=== PATIENT | female | born 1960 | race Caucasian/White ===

== ENCOUNTER 2018-09-28 18:26 | Emergency (ER) | payer OTHER, MEDICARE ==
[2018-09-28] MEDS ORDERED: ACET-704 PO (18:59)
[2018-09-28] MEDS ORDERED: PENI500T PO (18:59)
--- NOTE | 2018-09-28 19:04 | PHYS DOC ---
Adult General Chief Complaint Chief Complaint dental pain HPI HPI Procedures old female presented to the ER with the dental pain on the left lower side for the past month she is scheduled to see a dentist next week no fever no chills no chest pain no shortness of breath Review of Systems Review of Systems Constitutional: Denies fever or chills [] Eyes: Denies change in visual acuity, redness, or eye pain [] HENT: Denies nasal congestion or sore throat [] Respiratory: Denies cough or shortness of breath [] Cardiovascular: No additional information not addressed in HPI [] GI: Denies abdominal pain, nausea, vomiting, bloody stools or diarrhea [] : Denies dysuria or hematuria [] Musculoskeletal: Denies back pain or joint pain [] Integument: Denies rash or skin lesions [] Neurologic: Denies headache, focal weakness or sensory changes [] Endocrine: Denies polyuria or polydipsia [] All other systems were reviewed and found to be within normal limits, except as documented in this note. Allergies Allergies Allergies Coded Allergies Type Severity Reaction Last Updated Verified erythromycin base Allergy Unknown 09/28/18 Yes Physical Exam Physical Exam Constitutional: Well developed, well nourished, no acute distress, non-toxic appearance. [] HENT: Normocephalic, atraumatic, bilateral external ears normal, oropharynx moist, no oral exudates, nose normal. [] Eyes: PERRLA, EOMI, conjunctiva normal, no discharge. [] Neck: Normal range of motion, no tenderness, supple, no stridor. [] Cardiovascular:Heart rate regular rhythm, no murmur [] Lungs & Thorax: Bilateral breath sounds clear to auscultation [] Abdomen: Bowel sounds normal, soft, no tenderness, no masses, no pulsatile masses. [] Skin: Warm, dry, no erythema, no rash. [] Back: No tenderness, no CVA tenderness. [] Extremities: No tenderness, no cyanosis, no clubbing, ROM intact, no edema. [] Neurologic: Alert and oriented X 3, normal motor function, normal sensory function, no focal deficits noted. [] Psychologic: Affect normal, judgement normal, mood normal. [] Current Patient Data Vital Signs Vital Signs Date Time Temp Pulse Resp B/P (MAP) Pulse Ox O2 Delivery O2 Flow Rate FiO2 09/28/18 18:28 97.9 115 18 95 Room Air EKG EKG [] Radiology/Procedures Radiology/Procedures [] Course & Med Decision Making Course & Med Decision Making Pertinent Labs and Imaging studies reviewed. (See chart for details) [] Final Impression Final Impression [] Problems: (1) Chronic dental pain Dragon Disclaimer Dragon Disclaimer This electronic medical record was generated, in whole or in part, using a voice recognition dictation system. IRLANDA LI MD Sep 28, 2018 19:04
[2018-09-28 19:21] VITALS: BP 155/80
== END 2018-09-28 19:25 | disposition home or self-care (01) ==
LOC: ER 18:26
DX: G89.29 Other chronic pain (principal); K08.89 Other specified disorders of teeth and supporting structures; Z88.1 Allergy status to other antibiotic agents
CPT/HCPCS: 99283

== ENCOUNTER 2019-12-26 22:23 | Inpatient (IN) | payer MEDICARE, OTHER ==
[~2019-12-26] VITALS: Ht 160 cm; Wt 152.0 kg
[~2019-12-26 22:23] MED LIST: ACET-704 PO; PENI500T PO
--- NOTE | 2019-12-26 22:40 | RAD ---
EXAM: CT Head without IV contrast CLINICAL HISTORY: Left-sided facial droop COMPARISON: None. TECHNIQUE: Routine CT of the head without contrast. Soft tissues and bone windows were reviewed. PQRS compliance statement - One or more of the following individualized dose reduction techniques were utilized for this study: 1. Automated exposure control 2. Adjustment of the mA and/or kV according to patient size 3. Use of iterative reconstruction technique FINDINGS: There is no evidence of hemorrhage, mass or extra-axial fluid collection. Mccracken-white differentiation is maintained with no evidence of edema. There is no mass effect or shift of the intracranial structures. The ventricles, basilar cisterns and cortical sulci are normal in size and configuration for the patients stated age. The cerebellum and brainstem are unremarkable. The calvarium demonstrates no evidence of fracture or focal lesion. Mastoid air cells are clear. Opacification of the right maxillary sinus and right frontal sinus, likely sinusitis. The visualized portions of the orbits are normal. IMPRESSION: 1. No evidence for acute intracranial hemorrhage. 2. Opacification of the right maxillary sinus and right frontal sinus, likely sinusitis. Findings discussed with JOSE SU at 12/26/2019 10:36 PM. FOR INTERNAL CODING PURPOSES RESULT CODE: (C) Electronically signed by: Stephan Umana MD (12/26/2019 10:38 PM) [id number]
--- NOTE | 2019-12-26 22:48 | EKG ---
[address] [address] Test Date: 2019-12-26 Test Time: 22:40:35 Pat Name: LESLY BRYSON Department: Room: Gender: F Compound Finisher: : 1960 Requested By: JOSE SU Order Number: [id number] Reading MD: Measurements Intervals [place] Rate: 108 P: [place]: QRS: 65 QRSD: 98 T: 26 QT: 348 QTc: 470 Interpretive Statements IRREGULAR RHYTHM, NO P-WAVE FOUND R-S TRANSITION ZONE IN V LEADS DISPLACED TO THE LEFT OTHERWISE NORMAL ECG RI6.01 No previous ECG available for comparison
[2019-12-26] MEDS ORDERED: IV RINGERS SOLUTION,LACTATED 1,000 ML IV SCH (23:00)
--- NOTE | 2019-12-26 23:01 | RAD ---
Exam: Chest one view INDICATION: Stroke evaluation TECHNIQUE: Frontal view of the chest Comparisons: None FINDINGS: Heart is mildly enlarged. Pulmonary vessels are within normal limits. The lung and pleural spaces are clear. IMPRESSION: No acute cardiopulmonary process. Electronically signed by: Albin Shah MD (12/26/2019 10:58 PM) [facility]
[2019-12-26 23:02] LABS: BASO # 0.1 x10^3/uL (0.0-0.2); BASO % 1 % (0-3); EOS # 0.2 x10^3/uL (0.0-0.7); EOS % 2 % (0-3); HEMATOCRIT 38.2 % (36.0-47.0); HEMOGLOBIN 12.6 g/dL (12.0-15.5); LYMPH % 20 % (24-48); MEAN CORPUSCULAR HEMOGLOBIN 31 pg (25-35); MEAN CORPUSCULAR HGB CONC 33 g/dL (31-37); MEAN CORPUSCULAR VOLUME 93 fL (79-100); MONO # 0.6 x10^3/uL (0.0-1.1); MONO % 6 % (0-9); NEUT # 7.2 x10^3uL (1.8-7.7); NEUT % 72 % (31-73); PLATELET COUNT 262 x10^3/uL (140-400); RED BLOOD COUNT 4.13 x10^6/uL (3.50-5.40); RED CELL DISTRIBUTION WIDTH 14.2 % (11.5-14.5)
[2019-12-26 23:09] LABS: CALCIUM 8.5 mg/dL (8.5-10.1); GFR 56.7
[2019-12-26] MEDS: ENOXAPARIN ** NOTE DOSE ** SYRINGE SQ SCH (23:09)
--- NOTE | 2019-12-26 23:09 | PHYS DOC ---
Past History Past Medical History: A-Fib, Anxiety, Asthma, Bronchitis, TIA, Other Past Surgical History: Cholecystectomy, Alcohol Use: None Drug Use: None Adult General Chief Complaint Chief Complaint: ALTERED MENTAL STATUS..." I was coming out of the shower.. and it seems like my right arm was numb or may weak.. that was about 0930 pm.. but I got worried and decided to come in to get check ouit.. the arm stuff only lasted a few minutes.. I got to set up... I can not lay flat on my back.... I got chonic back pain.. .. I do have afib... that I get metoprolol for.. " HPI HPI Patient is a 59 year old female who presents with above hx and complaints of Rt. arm numbness and weakness of very short duration at 2100 hrs. Symptom resolved at scene. Was evaluated as CVA by paramedics. Pt. but no significant deficits on arrival, and main compliant was low back pain from laying on her back. Pt. does have a history of A. fib and has been taking minute metoprolol 25 a day for that disorder for some time. Patient is not on any anticoagulation. Patient does not smoke. Patient denies any trauma. Patient travel. Patient denies any history immunosuppression.. Patient did have trouble concentrating answer questions initially because of her back pain complaints. However this resolved promptly upon sitting patient up. Patient normally follows with Dr. Wellington. Discussed with pt. benefits and risks of TPA, if we elected to treat a acute stroke.. Pt. stated did not want to do that kind of treatment, because she felt fine now. Pt. does report she has had increased heart rate today. Patient normally follows with for Atrial Fib.and hypertension. Review of Systems Review of Systems Constitutional: Denies fever or chills [] Eyes: Denies change in visual acuity, redness, or eye pain [] HENT: Denies nasal congestion or sore throat [] Respiratory: Denies cough or shortness of breath [] Cardiovascular: No additional information not addressed in HPI [] GI: Denies abdominal pain, nausea, vomiting, bloody stools or diarrhea [] : Denies dysuria or hematuria [] Musculoskeletal: Denies back pain or joint pain [] Integument: Denies rash or skin lesions [] Neurologic: Denies headache, focal weakness or sensory changes []Pt. complaints of earlier right arm numbness and weakness-resolved with by time of material cutter transport Endocrine: Denies polyuria or polydipsia [] All other systems were reviewed and found to be within normal limits, except as documented in this note. Family History Family History Noncontributory presentation Current Medications Current Medications Current Medications Medications (Trade) Dose Ordered Sig/Caty Start Time Stop Time Status Last Admin Dose Admin Lactated Ringer's 1,000 ml @ 100 mls/hr Q10H 12/26/19 23:00 12/27/19 08:59 Allergies Allergies Allergies Coded Allergies Type Severity Reaction Last Updated Verified erythromycin base Allergy Unknown 09/28/18 Yes Physical Exam Physical Exam Constitutional: no acute distress, non-toxic appearance. [] HENT: Normocephalic, atraumatic, bilateral external ears normal, oropharynx moist, no oral exudates, nose normal. [] Eyes: PERRLA, EOMI, conjunctiva normal, no discharge. [] Neck: Normal range of motion, no tenderness, supple, no stridor. [] More than 17 inches circumference Cardiovascular: Tachycardia Heart rate and irregular regular rhythm, no murmur []. PMI slightly to left Lungs & Thorax: Bilateral breath sounds equal at apexes with basilar crackles on auscultation [] Abdomen: Bowel sounds normal, soft, no tenderness, no masses, no pulsatile masses. [] Morbid obesity. Old surgery scars. Skin: Warm, dry, no erythema, no rash. [] Back: No tenderness, no CVA tenderness. [] Extremities: No tenderness, no cyanosis, no clubbing, ROM intact, no edema. [] Complaints of chronic low back pain. Neurologic: Alert and oriented X 3, normal motor function, normal sensory function, no focal deficits noted. []DTRs +2 patella and brachial. Resort Host equal. Right-hand dominant. No drift. NIHSS - 1? Psychologic: Affect normal, judgement normal, mood normal. [] Current Patient Data Lab Results Laboratory Tests Test 12/26/19 22:38 Glucose (Fingerstick) 122 mg/dL (70-99) H EKG EKG My interpretation EKG shows a sinus tachycardia at 108 bpm. There is a regular rate and rhythm. There is no obvious conduction by P waves. Overall morphology consistent with A. fib.[] Radiology/Procedures Radiology/Procedures [address] [address] IMAGING REPORT Signed PATIENT: LESLY BRYSON ACCOUNT: [id number] : 1960 LOCATION: ER AGE: 59 SEX: F EXAM STATUS: REG ER ORD. PHYSICIAN: JOSE SU MD REASON: stroke eval, left sided facial droop, unable to speak PROCEDURE: CT CODE STROKE HEAD WO EXAM: CT Head without IV contrast CLINICAL HISTORY: Left-sided facial droop COMPARISON: None. TECHNIQUE: Routine CT of the head without contrast. Soft tissues and bone windows were reviewed. PQRS compliance statement - One or more of the following individualized dose reduction techniques were utilized for this study: 1. Automated exposure control 2. Adjustment of the mA and/or kV according to patient size 3. Use of iterative reconstruction technique FINDINGS: There is no evidence of hemorrhage, mass or extra-axial fluid collection. Mccracken-white differentiation is maintained with no evidence of edema. There is no mass effect or shift of the intracranial structures. The ventricles, basilar cisterns and cortical sulci are normal in size and configuration for the patients stated age. The cerebellum and brainstem are unremarkable. The calvarium demonstrates no evidence of fracture or focal lesion. Mastoid air cells are clear. Opacification of the right maxillary sinus and right frontal sinus, likely sinusitis. The visualized portions of the orbits are normal. IMPRESSION: 1. No evidence for acute intracranial hemorrhage. 2. Opacification of the right maxillary sinus and right frontal sinus, likely sinusitis. Findings discussed with JOSE SU at 12/26/2019 10:36 PM. FOR INTERNAL CODING PURPOSES RESULT CODE: (C) [][address] [address] IMAGING REPORT Signed PATIENT: LESLY BRYSON ACCOUNT: [id number] : 1960 LOCATION: ER AGE: 59 SEX: F EXAM STATUS: REG ER ORD. PHYSICIAN: JOSE SU MD REASON: stroke eval PROCEDURE: PORTABLE CHEST 1V Exam: Chest one view INDICATION: Stroke evaluation TECHNIQUE: Frontal view of the chest Comparisons: None FINDINGS: Heart is mildly enlarged. Pulmonary vessels are within normal limits. The lung and pleural spaces are clear. IMPRESSION: No acute cardiopulmonary process. Electronically signed by: Albin Candelaria MD (12/26/2019 10:58 PM) [facility] DICTATED AND SIGNED BY: ALBIN CANDELARIA MD DATE: 12/26/192257 CC: JOSE SU MD; MATTHEW WELLINGTON ~ Course & Med Decision Making Course & Med Decision Making Pertinent Labs and Imaging studies reviewed. (See chart for details) Pt. admitted to Dr. Dwyer, with neurology and cardiology consults. Will anticoagulate with Lovenox and give aspirin. Heart score 4 Impression: 1. TIA vs CVA- ( Not candidate for TPA at this time. And patient refused considering use of this medication) 2. A. fib with rapid ventricular response 3. Right mastoid and right frontal sinusitis 4. Morbid obesity 5. CHF diastolic dysfunction BNP 3168 6. Diabetes 122 7. Elevated d-dimer 1.40 8. Urinary tract infection 9. Accelerated hypertension 10. Elevated CRP 21.5 and Sed. Rate 53 11. History of asthma 12. Malnutrition albumin 3.0 [] Dragon Disclaimer Dragon Disclaimer This electronic medical record was generated, in whole or in part, using a voice recognition dictation system. Departure Departure: Disposition: 01 HOME/RESIDENCE PRIOR TO ADM Condition: STABLE Referrals: MATTHEW WELLINGTON (PCP) Dragon Disclaimer This chart was dictated in whole or in part using Voice Recognition software in a busy, high-work load, and often noisy Emergency Department environment. It may contain unintended and wholly unrecognized errors or omissions. Dragon Disclaimer This chart was dictated in whole or in part using Voice Recognition software in a busy, high-work load, and often noisy Emergency Department environment. It may contain unintended and wholly unrecognized errors or omissions. JOSE SU MD Dec 26, 2019 23:09
[2019-12-26] MEDS ORDERED: ANTI-COAG MONITOR BY PHARMACY. MC PRN (23:15)
[2019-12-26 23:21] LABS: C REACTIVE PROTEIN 21.5 mg/L (0-3.3); DIRECT BILIRUBIN 0.1 mg/dL (0.0-0.2); MAGNESIUM 1.9 mg/dL (1.8-2.4); TOTAL BILIRUBIN 0.4 mg/dL (0.2-1.0); TOTAL PROTEIN 7.6 g/dL (6.4-8.2)
[2019-12-26] MEDS ORDERED: ASPIRIN 81 MG TAB.CHEW PO ONE (23:30)
[2019-12-26 23:40] LABS: BARBITURATES NEG (NEG); BENZODIAZEPINES NEG (NEG); CANNABINOIDS NEG (NEG); COCAINE NEG (NEG); METHADONE NEG (NEG); OPIATES NEG (NEG); PHENCYCLIDINE NEG (NEG)
[2019-12-26] MEDS ORDERED: IV NORMAL SALINE 50ML 50 ML ONE (23:44)
[2019-12-26] MEDS ORDERED: cefTRIAXone SODIUM 1 GM VIAL ONE (23:44)
[2019-12-26 23:47] LABS: AMPHETAMINE/METHAMPHETAMINE NEG (NEG)
[2019-12-26 23:54] LABS: BACTERIA,URINE FEW /HPF (0-FEW); BILIRUBIN,URINE NEG (NEG); CLARITY,URINE HAZY; COLOR,URINE YELLOW; GLUCOSE,URINE NEG (NEG); NITRITE,URINE POS (NEG); RBC,URINE OCC /HPF (0-2); SQUAMOUS EPITHELIAL CELL,UR MOD /LPF; UROBILINOGEN,URINE 0.2 mg/dL (0.2 mg/dL); WBC,URINE >40 /HPF (0-4)
[2019-12-27 00:27] LABS: SEDIMENTATION RATE 53 (0-25)
[2019-12-27] MEDS ORDERED: CONTRAST GIVEN MC PRN (00:30)
[2019-12-27] MEDS ORDERED: METOPROLOL TARTRATE 5 MG/5 ML VIAL. IV ONE (00:30)
[2019-12-27] MEDS ORDERED: ACETAMINOPHEN 325 MG TABLET PO PRN (00:30)
[2019-12-27] MEDS ORDERED: IOHEXOL 350 MG/ML 100 ML VIAL. IV ONE (00:30)
[2019-12-27] MEDS ORDERED: ONDANSETRON PF 4 MG/2 ML VIAL. IV PRN (00:30)
--- NOTE | 2019-12-27 01:07 | RAD ---
CTA Chest with contrast: Clinical History: Dizziness tachycardia chest pain and elevated d-dimer. Axial helical images of the chest were obtained after the administration of 100 cc of IV Isovue-370 and timed appropriately for a pulmonary arterial study. Conventional axial reconstruction was performed in addition to coronal, sagittal and bilateral oblique MIP (maximum intensity projection). This study was ordered to detect possible pulmonary embolism. There are no filling defects to suggest pulmonary embolism. The lungs and pleural margins are clear. There is no mediastinal or hilar lymphadenopathy. The thoracic aorta appears normal. Impression: 1. No evidence of pulmonary embolism. 2. No significant findings. PQRS Compliance Statement: One or more of the following individualized dose reduction techniques were utilized for this examination: 1. Automated exposure control 2. Adjustment of the mA and/or kV according to patient size 3. Use of iterative reconstruction technique Electronically signed by: Jeff Hand III, MD (12/27/2019 1:04 AM) [id number]
[2019-12-27] MEDS ORDERED: FUROSEMIDE 40 MG/4 ML VIAL IVP ONE (03:00)
[2019-12-27] MEDS ORDERED: METO-239 PO (04:30)
[2019-12-27] MEDS ORDERED: SERT100T8 PO (04:30)
[2019-12-27] MEDS: METOPROLOL TART IMMED RELEASE 25 MG TABLET PO SCH ×2 (05:40→09:15)
[2019-12-27 06:21] VITALS: BP 154/112
[2019-12-27] MEDS ORDERED: ENOXAPARIN ** NOTE DOSE ** SYRINGE SQ SCH (09:00)
--- NOTE | 2019-12-27 09:07 | RAD ---
VENOUS LOWER EXT BILATERAL History: Lower extremity edema. Elevated d-dimer. Comparison: None. Discussion: Degraded evaluation due to patient body habitus. Multiple longitudinal and transverse high resolution real-time images of the venous system of bilateral lower extremity were obtained with color and Doppler sampling. The common femoral, superficial femoral, popliteal and proximal calf veins are all patent and demonstrate normal flow and compressibility. Normal respiratory phasicity and augmentation is present. Impression: 1. No evidence of deep vein thrombosis. Electronically signed by: Hayes Lepe DO (12/27/2019 9:04 AM) [id number]
[2019-12-27] MEDS: ENOXAPARIN ** NOTE DOSE ** SYRINGE SQ SCH (09:15)
[2019-12-27] MEDS: FLUTICASONE 50MCG/NASAL SPRAY 16GM BOTTLE. NS SCH (09:16)
--- NOTE | 2019-12-27 09:16 | PDOC2 ---
HERACLIO CARRENO SAFETY INSTRUCTOR 12/27/19 0916: CARDIAC CONSULT DATE OF CONSULT Date Of Consult DATE: 12/27/19 TIME: 09:10 REASON FOR CONSULT Reason for Consult CHF AFIB HTN REFERRING PHYSICIAN Referring Physician Dr. Malone SOURCE Source: Chart review, Patient HPI History of Present Illness This is a 59 yo female who presented secondary to right sided numbness and weakness. Reports she got out of the shower last night and began walking to one side. Noticed her right arm and leg were heavy and weak. Had difficulty making speech. Symptoms initially resolved, but then retuned so she came to the ED for further evaluation and treatments. Fells back to baseline this morning. No dizziness, diaphoresis, palpitations, shortness of breath, or nausea/vomiting. Has a history of AFIB. Reports this was diagnosed 4-5 years ago. Was supposed to see a line supervisor, but never went. Does not take OAC or ASA routinely. Rate has been controlled on metoprolol. No previous cardiac workup. PAST MEDICAL HISTORY Cardiovascular: AFIB, HTN Pulmonary: Asthma Psych: Anxiety, Depression PAST SURGICAL HISTORY Past Surgical History: Hysterectomy FAMILY HISTORY Family History: Stroke SOCIAL HISTORY Smoke: No ALCOHOL: none Drugs: None Lives: with Family CURRENT MEDICATIONS Current Medications Current Medications Lactated Ringer's 1,000 ml @ 100 mls/hr Q10H IV Last administered on 12/26/19at 23:04; Start 12/26/19 at 23:00; Stop 12/27/19 at 05:07; Status DC Aspirin (Children'S Aspirin) 324 mg 1X ONCE PO Last administered on 12/26/19at 23:09; Start 12/26/19 at 23:30; Stop 12/26/19 at 23:31; Status DC Enoxaparin Sodium (Lovenox 150mg Syringe) 150 mg Q12HR SQ Last administered on 12/26/19at 23:09; Start 12/26/19 at 23:30 Info (Anti-Coagulation Monitoring By Pharmacy) 1 each PRN DAILY PRN MC SEE COMMENTS; Start 12/26/19 at 23:15 Ceftriaxone Sodium 1 gm/ Sodium Chloride 50 ml @ 100 mls/hr 1X ONCE IV Last administered on 12/26/19at 23:46; Start 12/26/19 at 23:30; Stop 12/26/19 at 23:59; Status DC Sodium Chloride 50 ml @ As Directed STK-MED ONCE .ROUTE ; Start 12/26/19 at 23:44; Stop 12/26/19 at 23:45; Status DC Ceftriaxone Sodium (Rocephin) 1 gm STK-MED ONCE .ROUTE ; Start 12/26/19 at 23:44; Stop 12/26/19 at 23:45; Status DC Metoprolol Tartrate (Lopressor Vial) 5 mg 1X ONCE IV Last administered on 12/27/19at 00:56; Start 12/27/19 at 00:30; Stop 12/27/19 at 00:31; Status DC Iohexol (Omnipaque 350 Mg/ml) 100 ml 1X ONCE IV Last administered on 12/27/19at 00:42; Start 12/27/19 at 00:30; Stop 12/27/19 at 00:31; Status DC Info (Do NOT chart on this entry -- for MONITORING) 1 each PRN DAILY PRN MC SEE COMMENTS; Start 12/27/19 at 00:30; Stop 12/29/19 at 00:29 Ondansetron HCl (Zofran) 4 mg PRN Q4HRS PRN IV NAUSEA/VOMITING; Start 12/27/19 at 00:30; Stop 12/28/19 at 00:29 Acetaminophen (Tylenol) 650 mg PRN Q4HRS PRN PO FEVER; Start 12/27/19 at 00:30; Stop 12/28/19 at 00:29 Enoxaparin Sodium (Lovenox 150mg Syringe) 150 mg Q12HR SQ ; Start 12/27/19 at 09:00; Status UNV Fluticasone Propionate (Flonase) 2 spray DAILY NS ; Start 12/27/19 at 09:00 Ceftriaxone Sodium 1 gm/ Sodium Chloride 50 ml @ 100 mls/hr QHS IV ; Start 12/27/19 at 21:00 Metoprolol Tartrate (Lopressor) 25 mg BID PO Last administered on 12/27/19at 05:40; Start 12/27/19 at 06:00 Furosemide (Lasix) 40 mg 1X ONCE IVP Last administered on 12/27/19at 02:36; Start 12/27/19 at 03:00; Stop 12/27/19 at 03:01; Status DC Lactobacillus Rhamnosus (Culturelle) 1 cap BID PO ; Start 12/27/19 at 21:00 Active Scripts Active Reported Sertraline Hcl 100 Mg Tablet 100 Mg PO DAILY Metoprolol Succinate ( Xl ) (Metoprolol Succinate) 25 Mg Tab.er.24h 25 Mg PO DAILY ALLERGIES Allergies: Coded Allergies: erythromycin base (Verified Allergy, Unknown, 09/28/18) ROS Review of Systems 14 point ROS conducted with pertinent positives noted above in hPI PHYSICAL EXAM General: Alert, Oriented X3, Cooperative, No acute distress HEENT: Atraumatic, Mucous membr. moist/pink Lungs: Other (diminished bases ) Heart: Other Abdomen: Soft, No tenderness, Other (obese ) Extremities: No edema, Normal pulses Skin: No breakdown Neuro: Normal speech, Sensation intact Psych/Mental Status: Mental status NL, Mood NL MUSCULOSKELETAL: No joint tenderness, Osteoarthritic changes both hands VITALS Vital Signs Vital Signs Date Time Temp Pulse Resp B/P (MAP) Pulse Ox O2 Delivery O2 Flow Rate FiO2 12/27/19 06:21 97.9 96 16 154/112 (126) 95 Room Air LABS LABS Laboratory Tests Test 12/26/19 22:35 12/26/19 22:38 12/26/19 23:00 White Blood Count 10.0 x10^3/uL (4.0-11.0) Red Blood Count 4.13 x10^6/uL (3.50-5.40) Hemoglobin 12.6 g/dL (12.0-15.5) Hematocrit 38.2 % (36.0-47.0) Mean Corpuscular Volume 93 fL (79-100) Mean Corpuscular Hemoglobin 31 pg (25-35) Mean Corpuscular Hemoglobin Concent 33 g/dL (31-37) Red Cell Distribution Width 14.2 % (11.5-14.5) Platelet Count 262 x10^3/uL (140-400) Neutrophils (%) (Auto) 72 % (31-73) Lymphocytes (%) (Auto) 20 % (24-48) Monocytes (%) (Auto) 6 % (0-9) Eosinophils (%) (Auto) 2 % (0-3) Basophils (%) (Auto) 1 % (0-3) Neutrophils # (Auto) 7.2 x10^3uL (1.8-7.7) Lymphocytes # (Auto) 2.0 x10^3/uL (1.0-4.8) Monocytes # (Auto) 0.6 x10^3/uL (0.0-1.1) Eosinophils # (Auto) 0.2 x10^3/uL (0.0-0.7) Basophils # (Auto) 0.1 x10^3/uL (0.0-0.2) Erythrocyte Sedimentation Rate 53 (0-25) Prothrombin Time 10.3 SEC (9.4-11.4) Prothromb Time International Ratio 1.0 (0.9-1.1) Activated Partial Thromboplast Time 25 SEC (23-33) D-Dimer (Alexa) 1.40 mg/L (0.00-0.50) Sodium Level 139 mmol/L (136-145) Potassium Level 4.0 mmol/L (3.5-5.1) Chloride Level 102 mmol/L (98-107) Carbon Dioxide Level 26 mmol/L (21-32) Anion Gap 11 (6-14) Blood Urea Nitrogen 17 mg/dL (7-20) Creatinine 1.0 mg/dL (0.6-1.0) Estimated GFR (Cockcroft-Gault) 56.7 Glucose Level 122 mg/dL (70-99) Calcium Level 8.5 mg/dL (8.5-10.1) Magnesium Level 1.9 mg/dL (1.8-2.4) Total Bilirubin 0.4 mg/dL (0.2-1.0) Direct Bilirubin 0.1 mg/dL (0.0-0.2) Aspartate Amino Transf (AST/SGOT) 14 U/L (15-37) Alanine Aminotransferase (ALT/SGPT) 19 U/L (14-59) Alkaline Phosphatase 121 U/L (46-116) Creatine Kinase 44 U/L (26-192) Troponin I Quantitative 0.026 ng/mL (0-0.055) C-Reactive Protein 21.5 mg/L (0-3.3) AQ-Dxd-D-Type Natriuretic Peptide 3168 pg/mL (0-124) Total Protein 7.6 g/dL (6.4-8.2) Albumin 3.0 g/dL (3.4-5.0) Lipase 94 U/L (73-393) Glucose (Fingerstick) 122 mg/dL (70-99) Urine Collection Type Unknown Urine Color Yellow Urine Clarity Hazy Urine pH 5.5 Urine Specific [place] >=1.030 Urine Protein 30 mg/dl (NEG-TRACE) Urine Glucose (UA) Neg mg/dL (NEG) Urine Ketones (Stick) Neg mg/dL (NEG) Urine Blood Mod (NEG) Urine Nitrite Pos (NEG) Urine Bilirubin Neg (NEG) Urine Urobilinogen Dipstick 0.2 mg/dL (0.2 mg/dL) Urine Leukocyte Esterase Trace (NEG) Urine RBC Occ /HPF (0-2) Urine WBC >40 /HPF (0-4) Urine Squamous Epithelial Cells Mod /LPF Urine Bacteria Few /HPF (0-FEW) Urine Opiates Screen Neg (NEG) Urine Methadone Screen Neg (NEG) Urine Barbiturates Neg (NEG) Urine Phencyclidine Screen Neg (NEG) Urine Amphetamine/Methamphetamine Neg (NEG) Urine Benzodiazepines Screen Neg (NEG) Urine Cocaine Screen Neg (NEG) Urine Cannabinoids Screen Neg (NEG) Urine Ethyl Alcohol Neg (NEG) ASSESSMENT/PLAN Assessment/Plan 1. Transient right- sided weakness/numbness with associated dysarthria; resolved 2. Persistent AFIB; rate elevated upon arrival, but is now controlled. Diagnosed 4-5 years ago. Was to have cardiac workup, but never went to see line supervisor. Not on OAC or ASA at home 3. Accelerate HTN; better controlled 4. Mild acute on chronic diastolic CHF 5. Morbid obestiy 6. Elevated d-dimer; CTA negative for PE 7. UTI Recommendations Start OAC with Eliquis. R/b/a discussed and she is agreeable Increase metoprolol for better rate control TSH, lipids Echo to assess LV systolic function Lasix PRN Consider outpatient ischemic evaluation, monitor Supportive care ABRAHAN GRAVES MD 12/28/19 1031: CARDIAC CONSULT ASSESSMENT/PLAN Assessment/Plan Late entry for 12/27/2019 Pt. seen and examined. Agree with above NURSING INFORMATICS SPECIALIST note. She has cardiomyopathy, likely NICM due to afib and obesity. Will plan for outpt cath and initiate HF medical therapy first. Agree with anticoagulation, discussed r/b/a with patient and family. HERACLIO CARRENO APRN Dec 27, 2019 09:16 ABRAHAN GRAVES MD Dec 28, 2019 10:31
--- NOTE | 2019-12-27 09:18 | RAD ---
DOPPLER CAROTID BILAT History: TIA. CVA. COMPARISON: None Technique: Duplex sonography of the cervical portion of both carotid arteries was performed. Real-time grayscale, color flow Doppler, and Doppler spectral waveform analysis is performed. PQRS Compliance Statement - Stenosis calculations for CT, MR and conventional angiography are based upon measurement of the distal ICA diameter in accordance with the NASCET methodology. Stenosis calculations for carotid ultrasound studies are derived from validated velocity criteria which are known to correlate with the NASCET methodology. Findings: Right side: Peak systolic flow velocity of the CCA is 84 cm/sec. Peak systolic flow velocity of the ICA is 43 cm/sec. The ICA/CCA ratio is 0.51. Peak end diastolic flow velocity of the ICA is 18 cm/sec. The peak systolic velocity of the ECA is 95 cm/sec. No significant plaque formation is identified, Left side: Peak systolic flow velocity of the CCA is 76 cm/sec. Peak systolic flow velocity of the ICA is 60 cm/sec. The ICA/CCA ratio is 0.79. Peak end diastolic flow velocity of the ICA is 26 cm/sec. Peak systolic flow velocity of the ECA is 108 cm/sec. No significant plaque formation is identified. Vertebral arteries: Bilateral vertebral arteries demonstrate antegrade flow. IMPRESSION: 1. No hemodynamically significant internal carotid artery stenosis. Electronically signed by: Hayes Lepe DO (12/27/2019 9:15 AM) [email or web address]
[2019-12-27] MEDS ORDERED: METOPROLOL TART IMMED RELEASE 25 MG TABLET PO ONE (10:15)
[2019-12-27 10:37] VITALS: BP 121/87
[2019-12-27 15:54] VITALS: BP 159/95
[2019-12-27] MEDS ORDERED: FUROSEMIDE 20 MG/2 ML VIAL IVP ONE (18:30)
--- NOTE | 2019-12-27 18:38 | CARD ---
MR#: [id number] Date of Study: 12/27/2019 Ordering Physician: HERACLIO CARRENO, Referring Physician: HERACLIO CARRENO, Tech: Jagruti Talbot APPROVED REPORT EXAM: Two-dimensional and M-mode echocardiogram with Doppler and color Doppler. Other Information Quality : AverageHR: 80bpm Technically limited study due to body habitus. INDICATION Atrial Fibrillation 2D DIMENSIONS RVDd3.3 (2.9-3.5cm)Left Atrium(2D)3.8 (1.6-4.0cm) IVSd0.9 (0.7-1.1cm)Aortic Root(2D)2.6 (2.0-3.7cm) LVDd5.8 (3.9-5.9cm)LVOT Diameter1.9 (1.8-2.4cm) PWd1.0 (0.7-1.1cm)LVDs4.7 (2.5-4.0cm) FS (%) 19.8 %SV66.7 ml LVEF(%)39.9 (>50%) Aortic Valve AoV Peak Duy.129.3cm/sAoV VTI28.5cm AO Peak GR.6.7mmHgLVOT Peak Duy.97.7cm/s LVOT VTI 18.85cmAO Mean GR.4mmHg JABIER (VMAX)2.96gr0AKP (VTI)1.91cm2 Mitral Valve MV E Peak Gr.7mmHgMV E Mean Gr.2mmHg Pulmonary Valve PV Peak Dytvnwux63.0cm/sPV Peak Grad.2mmHg Tricuspid Valve TR P. Lytuvhdj668vk/sRAP [id number] TR Peak Gr.54buBaOJCV03seXv LEFT VENTRICLE The Left Ventricle is mildly dilated. There is normal left ventricular wall thickness. The systolic f unction is moderately impaired. The Ejection Fraction is 40%. There is global hypokinesis of the left ventricle. Septal motion suggestive of conduction defect. Tissue Doppler imaging reveals moderate le ft ventricular diastolic dysfunction. RIGHT VENTRICLE The right ventricle is normal size. There is normal right ventricular wall thickness. The right ventr icular systolic function is normal. ATRIA The left atrium is borderline dilated. The right atrium is borderline dilated. The interatrial septum is intact with no evidence for an atrial septal defect or patent foramen ovale as noted on 2-D or Do ppler imaging. AORTIC VALVE The aortic valve is not well visualized. Doppler and Color Flow revealed no significant aortic regurg itation. There is no significant aortic valvular stenosis. MITRAL VALVE The mitral valve is normal in structure and function. There is no evidence of mitral valve prolapse. There is no mitral valve stenosis. Doppler and Color-flow revealed trace mitral regurgitation. TRICUSPID VALVE The tricuspid valve is normal in structure and function. Doppler and Color Flow revealed trace to mil d tricuspid regurgitation with an estimated PAP of 42 mmHg. There is no tricuspid valve stenosis. PULMONIC VALVE The pulmonic valve is not well visualized. Doppler and Color Flow revealed no pulmonic valvular regur gitation. There is no pulmonic valvular stenosis. GREAT VESSELS The aortic root is normal in size. The IVC is dilated. PERICARDIAL EFFUSION There is no evidence of significant pericardial effusion. Critical Notification Critical Value: No <Conclusion> The systolic function is moderately impaired. The Ejection Fraction is 40%. There is global hypokinesis of the left ventricle. Septal motion suggestive of conduction defect. Tissue Doppler imaging reveals moderate left ventricular diastolic dysfunction. Doppler and Color Flow revealed trace to mild tricuspid regurgitation with an estimated PAP of 42 mmH g. Signed by : Jai Barrios, Electronically Approved : 12/27/2019 17:38:09
--- NOTE | 2019-12-27 18:40 | HP ---
ADMIT DATE: 12/26/2019 HISTORY OF PRESENT ILLNESS: The patient is a 59-year-old female patient who came to the Emergency Room stating that she was coming out of her shower. Her right arm became weak, also her right lower extremity and was unable to talk that has been resolved. It was about 10 minutes and resolved and within 25 minutes, she has the same thing happened again; however, by the time she arrived to the Emergency Room; her symptoms have completely resolved. She was apparently known to have atrial fibrillation for the last 4 years, but has never been on any anticoagulation and therefore, she was evaluated in the Emergency Room extensively. She has had a CT scan of the head, which was basically unremarkable, showed no evidence of acute intracranial hemorrhage. She has opacification of the right maxillary sinus and right frontal sinus, likely sinusitis. Her lab works otherwise were within acceptable range. Her D-dimer was slightly high at 1.4. Urinalysis showed more than 40 wbc's and positive for nitrite. However, her toxic screen was negative. The patient was admitted with 1. Atrial fibrillation. 2. TIA with CVA. 3. The patient with right mastoid and right frontal sinusitis. 4. Morbid obesity. 5. Diastolic congestive heart failure, type 2 diabetes mellitus, elevated D-dimer, urinary tract infection, accelerated hypertension, elevated CRP and sed rate, history of bronchial asthma, malnutrition. She was treated with IV Lasix as well as metoprolol and was started on ceftriaxone as well as Lovenox and was admitted for further evaluation and to consult the Cardiology and Neurology. PAST MEDICAL HISTORY: Significant for atrial fibrillation, bronchial asthma/chronic bronchitis, hypertension, osteoarthritis and morbid obesity. PAST SURGICAL HISTORY: Significant for cholecystectomy, total abdominal hysterectomy and . ALLERGIES: SHE IS ALLERGIC TO ERYTHROMYCIN BASE. MEDICATIONS: She is currently on following medications: She is on metoprolol succinate 25 mg once a day and sertraline 100 mg once a day. FAMILY HISTORY: She has 2 brothers, 1 older at age of 64 and has brain tumor. The younger brother at age of 53 and has myocardial infarction. Her younger sister at age of 52 because of complication of systemic lupus erythematosus; of her 3 sisters, one of them has myocardial infarction at the age of 57, one was 56 years old and has rheumatoid arthritis, the youngest is 50 years old and healthy. Her father at the age of 60 because of myocardial infarction and cerebrovascular accident. Mother is still alive at the age of 81. She does sustained cerebrovascular accident; however, she is functional and ambulatory. SOCIAL HISTORY: She is , has 1 son and 1 daughter. One of her daughters at age of 36 because of complication of drug abuse. She has never smoked, does not drink alcohol or use any recreational drugs. She takes care of her grandchildren. REVIEW OF SYSTEMS: Unremarkable. PHYSICAL EXAMINATION: GENERAL: On arrival to the Emergency Room, she looked well and was clearly in no apparent respiratory distress. No pallor, jaundice or cyanosis. No lymphadenopathy, no thyromegaly. No jugular venous distention. No limb edema. VITAL SIGNS: Her heart rate was 98, axillary heart rate was 127, blood pressure 159/146, temperature was 97.8, respiratory rate 20, and oxygen saturation was 99% on room air. HEAD, EYES, EARS, NOSE AND THROAT: Showed normocephalic, atraumatic. NECK: Supple. CARDIAC: Normal first and second heart sounds. No gallop, rub or murmur. CHEST: Clear to auscultation. No crepitation or rhonchi. ABDOMEN: Distended, soft, nontender. No guarding or rigidity. No organomegaly. All hernial orifice intact. Bowel sounds normal. NEUROLOGIC: She was awake, alert, responding appropriately. All cranial nerves intact. EXTREMITIES: She moves extremities without difficulty. Her electric power line repairer are equal. Right hand dominant. No drift. She has had an EKG, which shows that she was in sinus tachycardia with heart rate of 108. Her CT scan of the head showed no evidence of acute intracranial hemorrhage, no opacification of the right maxillary sinus and right frontal sinus, likely sinusitis. A chest x-ray showed that the heart is mildly enlarged. Pulmonary vessels are within normal limits. The lungs and pleural spaces are clear. CT angio showed no evidence of pulmonary embolism and no other significant findings. Her bilateral lower extremity venous Doppler ultrasound showed no evidence of deep vein thrombosis and her bilateral carotid Doppler ultrasound showed no hemodynamically significant internal carotid artery stenosis. The patient was admitted and started on IV antibiotic in the form of ceftriaxone for her UTI as well as maxillary and frontal sinusitis, was also started on apixaban and we did consult the usps letter carrier as well as the urologist to assist with her management. IMPRESSION: In summary, this is a 59-year-old female patient who came in with what sounds to be TIA in a patient with atrial fibrillation who is not on anticoagulation. She has longstanding atrial fibrillation for which she is on metoprolol. Other medical problems include bronchial asthma, hypertension and generalized osteoarthritis. She was found also slightly elevated D-dimer; however, the venous Doppler ultrasound as well as CT angio of the chest ruled out pulmonary emboli. SALVADOR COOPER MD DR: EH/oziel JOB#: [id number] / [id number]
[2019-12-27] MEDS ORDERED: ONDANSETRON PF 4 MG/2 ML VIAL. IVP PRN (18:45)
[2019-12-27] MEDS: ACETAMINOPHEN 325 MG TABLET PO PRN (18:51)
[2019-12-27 19:00] VITALS: BP 137/95
[2019-12-27] MEDS ORDERED: ATORVASTATIN CALCIUM 10 MG TABLET. PO SCH (21:00)
[2019-12-27] MEDS: SACUBITRIL/VALSARTAN 24/26MG TABLET. PO SCH (21:16)
[2019-12-27] MEDS: LACTOBACILLUS RHAMNOSUS GG 1 CAPSULE. PO SCH (21:16)
[2019-12-27] MEDS: APIXABAN 5 MG TABLET. PO SCH (21:16)
[2019-12-27] MEDS: METOPROLOL TART IMMED RELEASE 50 MG TABLET PO SCH (21:17)
[2019-12-27 23:00] VITALS: BP 140/89
--- NOTE | 2019-12-27 23:23 | PN ---
DATE: 12/27/2019 SUBJECTIVE: The patient was admitted yesterday with what seems to be a TIA with right sided weakness, both upper and lower extremities and what seems to have aphasia that lasted only for about 10 minutes and happened twice, but by the time she arrived to the Emergency Room, her neurological deficit had completely resolved. She was found to be in atrial fibrillation, and she was seen by the Cardiology team as well as a neurologist, and apparently, she was found to have persistent atrial fibrillation with a rate that is not well controlled. She was not on any anticoagulation, and therefore, her metoprolol was increased to 50 mg twice a day. She was also started on apixaban, and we will continue obviously her Rocephin for both UTI and maxillary sinusitis. When I saw her this afternoon, she looked well and was clearly in no apparent respiratory distress. No pallor, jaundice, cyanosis or thyromegaly. No jugular venous distention. No limb edema. Her heart rate was down to 76, blood pressure 159/95, temperature was 97.9, respiratory rate 20, and oxygen saturation was 98% on room air. The rest of clinical exam was stable. LABORATORY DATA: Her labwork this morning showed that her white cell count is 10,000, hemoglobin 13, hematocrit 38, MCV 93, and platelet count 262,000. Her prothrombin time, INR and aPTT were normal. D-dimer was high; however, the venous Doppler ultrasound and CT angio of the chest were negative. Apparently, her echocardiogram showed that she has severely impaired left ventricular systolic function. PLAN: Apparently, the patient will be started on Entresto as well as Lasix, and she will be evaluated again tomorrow. David may be discharged home to follow with Cardiology team with the event monitor as an outpatient. SALVADOR COOPER MD DR: EH/oziel JOB#: [id number] / [id number]
[2019-12-28] MEDS: ACETAMINOPHEN 325 MG TABLET PO PRN ×2 (01:01→08:31)
--- NOTE | 2019-12-28 03:15 | CONS ---
DATE OF CONSULTATION: REFERRING PHYSICIAN: Dr. Dwyer. REASON FOR CONSULTATION: Rule out TIA. HISTORY OF PRESENT ILLNESS: This is a 59-year-old right-handed female who was admitted through Emergency Room after she presented with chief complaints of intermittent numbness, weakness of the right upper and lower extremities. According to the patient, she had two similar episodes, the first one was at 9:15 p.m. yesterday, presented with sudden onset of weakness and numbness and paresthesia confined to the right upper and lower extremities, lasted approximately 15 minutes. Half hour later, she had another similar episode and lasted again 15 minutes. She did not have any headaches, visual disturbances, nausea, vomiting, chest pain, shortness of breath or palpitations. Initial nonenhanced head CT scan revealed no evidence of acute intracranial process. The patient has had history of atrial fibrillations for which she saw a towel sorter approximately 5 years ago, but she did not have any complete workup. The patient stated she would have numbness and paresthesia of both hands for the last 4-5 months and those symptoms aggravated by excessive and repetitive movements of the hands. There has been no nocturnal exacerbation of her symptoms. PAST MEDICAL HISTORY: Significant for atrial fibrillation, asthma, bronchitis, obesity, hypertension, depression, anxiety, possible TIA, chronic lower back pain radiating into the lower extremities associated with numbness and paresthesia. PAST SURGICAL HISTORY: Significant for hysterectomy, cholecystectomy. SOCIAL HISTORY: The patient is . She has 3 children. She denies smoking, alcohol drinking, or illicit drug use. She is on disability because of chronic lower back pain and severe arthritis of the knees. FAMILY HISTORY: Her mother had stroke. Father had myocardial infarction and sister had lupus. CURRENT HOME MEDICATIONS: Metoprolol 25 mg daily and sertraline 100 mg p.o. daily. ALLERGIES: ERYTHROMYCIN BASE. REVIEW OF SYSTEMS: A 10-point review of system was performed as mentioned above in history of present illness. PHYSICAL EXAMINATION: GENERAL: Obese female, not in acute distress. She weighs 154.5 kilos. VITAL SIGNS: Blood pressure is 154/112, respiratory rate 16, pulse is 96 regular, temperature 97.9, oxygen saturation 95% on room air. HEENT: Normocephalic, atraumatic, otherwise unremarkable. NECK: Supple. Negative for carotid bruit, lymphadenopathy, JVD or thyromegaly. LUNGS: With diminished breath sounds bilaterally. No wheezing or rales. CARDIOVASCULAR: Regular rhythm, normal S1, S2. There is no S3, S4 or murmur. ABDOMEN: Soft. Bowel sounds positive. EXTREMITIES: Negative for cyanosis, clubbing or pitting edema. NEUROLOGIC: The patient is alert and oriented x 3. Speech is fluent. There is no language dysfunction. Memory, judgment, and abstract thinking are normal. The patient denies hallucination or delusion. CRANIAL NERVES: Visual barker are full. The pupils are reactive to light and accommodation. The extraocular movements are intact. There is no nystagmus. There is no facial motor or sensory deficit. Hearing is intact bilaterally. The palate is elevated symmetrically. Sternocleidomastoid muscles are powerful bilaterally. The patient shrugs her shoulders symmetrically, protrudes her tongue in the midline without fasciculation or atrophy. MOTOR EXAMINATION: No focal muscle bulk was seen. The tone is normal. The strength is 5/5 throughout. Sensory examination revealed diminished pinprick and light touch senses in patchy distributions in the bilateral median nerve distributions in both hands. Sensory examination elsewhere was normal to pinprick, light touch, vibratory and position senses. Deep tendon reflexes were symmetric and hypoactive with absent Achilles responses. Tinel's and Phalen's signs were present over the right median nerve at the wrist. Gait not tested. The coordination is normal. DIAGNOSTIC DATA: A carotid Doppler study revealed no evidence of significant stenosis. Ultrasound of the lower extremities revealed no evidence of deep venous thrombosis. CT angio revealed no evidence of pulmonary embolism, otherwise unremarkable. A chest x-ray has no acute cardiopulmonary process and head CT scan revealed no evidence of acute intracranial process. LABORATORY DATA: CBC revealed white blood cells of 10,000, hemoglobin 4.1, hematocrit 12.6, platelet count 262,000. Chemistry revealed sodium of 139, potassium 4, chloride 102, CO2 26, BUN 17, creatinine 1, glucose 122, calcium 8.5. Liver enzymes are normal. Alkaline phosphatase is elevated at 121, ____ level is 0.026 on the day of admission and normal today. CRP is high at 21.5. BNP is high at 3168. Lipase is normal. Coagulation revealed high D-dimer at 1.4. Urinalysis revealed evidence of trace urinary leukocyte esterase with white blood cells of more than 40 and positive for nitrite. IMPRESSION: 1. Possible 2 episodes of transient ischemic attack. 2. Multiple medical problems include urinary tract infections, atrial fibrillation, hypertension, chronic lower back pain, morbid obesity, possible early congestive heart failure. RECOMMENDATIONS: 1. Because of atrial fibrillation, the patient will be started on Eliquis. 2. Treat the underlying urinary tract infections. 3. Echocardiogram and Cardiology consult. 4. On discharge, the patient should follow up with Dr. Gannon to rule out entrapment neuropathy in the upper extremities as carpal tunnel syndrome. 5. Continue with current management initiated by Dr. Dwyer. M Ivis GANNON MD DR: RENARD/oziel JOB#: [id number] / [id number]
[2019-12-28 06:23] VITALS: BP 127/85
[2019-12-28 06:42] LABS: BASO % 0 % (0-3); EOS # 0.1 x10^3/uL (0.0-0.7); EOS % 2 % (0-3); HEMATOCRIT 40.5 % (36.0-47.0); HEMOGLOBIN 13.5 g/dL (12.0-15.5); LYMPH # 2.2 x10^3/uL (1.0-4.8); LYMPH % 27 % (24-48); MEAN CORPUSCULAR HEMOGLOBIN 31 pg (25-35); MEAN CORPUSCULAR HGB CONC 33 g/dL (31-37); MEAN CORPUSCULAR VOLUME 93 fL (79-100); MONO # 0.6 x10^3/uL (0.0-1.1); MONO % 7 % (0-9); NEUT # 5.2 x10^3uL (1.8-7.7); NEUT % 63 % (31-73); PLATELET COUNT 272 x10^3/uL (140-400); RED BLOOD COUNT 4.37 x10^6/uL (3.50-5.40); RED CELL DISTRIBUTION WIDTH 14.1 % (11.5-14.5); WHITE BLOOD COUNT 8.2 x10^3/uL (4.0-11.0)
[2019-12-28 06:44] LABS: CALCIUM 8.5 mg/dL (8.5-10.1); CREATININE 1.2 mg/dL (0.6-1.0); POTASSIUM 3.4 mmol/L (3.5-5.1)
[2019-12-28] MEDS ORDERED: POTASSIUM CHLORIDE 20 MEQ TABLET.ER. PO ONE (07:45)
[2019-12-28] MEDS ORDERED: POTASSIUM CHLORIDE 20 MEQ TABLET.ER. PO SCH (08:00)
--- NOTE | 2019-12-28 08:06 | PDOC ---
CARDIO Progress Notes Date & Time Date of Service DATE: 12/28/19 TIME: 08:05 Time of Evaluation 08:05 Subjective Notes c/o KENT. No chest pain, palpitations, dizziness, diaphoresis, or nausea/vomiting. Vitals Vitals Vital Signs Date Time Temp Pulse Resp B/P (MAP) Pulse Ox O2 Delivery O2 Flow Rate FiO2 12/28/19 06:23 97.5 68 20 127/85 (99) 96 Room Air Weight Weight [ ] Input and Output I.O. Intake and Output 12/28/19 07:00 Intake Total 300 ml Balance 300 ml Intake Oral 300 ml # Voids 9 Laboratory Labs Laboratory Tests Test 12/26/19 22:35 12/26/19 22:38 12/26/19 23:00 12/27/19 09:24 White Blood Count 10.0 x10^3/uL (4.0-11.0) Red Blood Count 4.13 x10^6/uL (3.50-5.40) Hemoglobin 12.6 g/dL (12.0-15.5) Hematocrit 38.2 % (36.0-47.0) Mean Corpuscular Volume 93 fL (79-100) Mean Corpuscular Hemoglobin 31 pg (25-35) Mean Corpuscular Hemoglobin Concent 33 g/dL (31-37) Red Cell Distribution Width 14.2 % (11.5-14.5) Platelet Count 262 x10^3/uL (140-400) Neutrophils (%) (Auto) 72 % (31-73) Lymphocytes (%) (Auto) 20 % (24-48) Monocytes (%) (Auto) 6 % (0-9) Eosinophils (%) (Auto) 2 % (0-3) Basophils (%) (Auto) 1 % (0-3) Neutrophils # (Auto) 7.2 x10^3uL (1.8-7.7) Lymphocytes # (Auto) 2.0 x10^3/uL (1.0-4.8) Monocytes # (Auto) 0.6 x10^3/uL (0.0-1.1) Eosinophils # (Auto) 0.2 x10^3/uL (0.0-0.7) Basophils # (Auto) 0.1 x10^3/uL (0.0-0.2) Erythrocyte Sedimentation Rate 53 (0-25) Prothrombin Time 10.3 SEC (9.4-11.4) Prothromb Time International Ratio 1.0 (0.9-1.1) Activated Partial Thromboplast Time 25 SEC (23-33) D-Dimer (Alexa) 1.40 mg/L (0.00-0.50) Sodium Level 139 mmol/L (136-145) Potassium Level 4.0 mmol/L (3.5-5.1) Chloride Level 102 mmol/L (98-107) Carbon Dioxide Level 26 mmol/L (21-32) Anion Gap 11 (6-14) Blood Urea Nitrogen 17 mg/dL (7-20) Creatinine 1.0 mg/dL (0.6-1.0) Estimated GFR (Cockcroft-Gault) 56.7 Glucose Level 122 mg/dL (70-99) Calcium Level 8.5 mg/dL (8.5-10.1) Magnesium Level 1.9 mg/dL (1.8-2.4) Total Bilirubin 0.4 mg/dL (0.2-1.0) Direct Bilirubin 0.1 mg/dL (0.0-0.2) Aspartate Amino Transf (AST/SGOT) 14 U/L (15-37) Alanine Aminotransferase (ALT/SGPT) 19 U/L (14-59) Alkaline Phosphatase 121 U/L (46-116) Creatine Kinase 44 U/L (26-192) Troponin I Quantitative 0.026 ng/mL (0-0.055) < 0.017 ng/mL (0-0.055) C-Reactive Protein 21.5 mg/L (0-3.3) WI-Kkd-L-Type Natriuretic Peptide 3168 pg/mL (0-124) Total Protein 7.6 g/dL (6.4-8.2) Albumin 3.0 g/dL (3.4-5.0) Lipase 94 U/L (73-393) Thyroid Stimulating Hormone (TSH) 5.690 uIU/mL (0.358-3.740) Glucose (Fingerstick) 122 mg/dL (70-99) Urine Collection Type Unknown Urine Color Yellow Urine Clarity Hazy Urine pH 5.5 Urine Specific Mustang >=1.030 Urine Protein 30 mg/dl (NEG-TRACE) Urine Glucose (UA) Neg mg/dL (NEG) Urine Ketones (Stick) Neg mg/dL (NEG) Urine Blood Mod (NEG) Urine Nitrite Pos (NEG) Urine Bilirubin Neg (NEG) Urine Urobilinogen Dipstick 0.2 mg/dL (0.2 mg/dL) Urine Leukocyte Esterase Trace (NEG) Urine RBC Occ /HPF (0-2) Urine WBC >40 /HPF (0-4) Urine Squamous Epithelial Cells Mod /LPF Urine Bacteria Few /HPF (0-FEW) Urine Opiates Screen Neg (NEG) Urine Methadone Screen Neg (NEG) Urine Barbiturates Neg (NEG) Urine Phencyclidine Screen Neg (NEG) Urine Amphetamine/Methamphetamine Neg (NEG) Urine Benzodiazepines Screen Neg (NEG) Urine Cocaine Screen Neg (NEG) Urine Cannabinoids Screen Neg (NEG) Urine Ethyl Alcohol Neg (NEG) Triglycerides Level 58 mg/dL (0-150) Cholesterol Level 154 mg/dL (0-200) LDL Cholesterol, Calculated 92 mg/dL (0-100) VLDL Cholesterol, Calculated 11 mg/dL (0-40) Non-HDL Cholesterol Calculated 103 mg/dL (0-129) HDL Cholesterol 51 mg/dL (40-60) Cholesterol/HDL Ratio 3.0 Test 12/28/19 05:57 White Blood Count 8.2 x10^3/uL (4.0-11.0) Red Blood Count 4.37 x10^6/uL (3.50-5.40) Hemoglobin 13.5 g/dL (12.0-15.5) Hematocrit 40.5 % (36.0-47.0) Mean Corpuscular Volume 93 fL (79-100) Mean Corpuscular Hemoglobin 31 pg (25-35) Mean Corpuscular Hemoglobin Concent 33 g/dL (31-37) Red Cell Distribution Width 14.1 % (11.5-14.5) Platelet Count 272 x10^3/uL (140-400) Neutrophils (%) (Auto) 63 % (31-73) Lymphocytes (%) (Auto) 27 % (24-48) Monocytes (%) (Auto) 7 % (0-9) Eosinophils (%) (Auto) 2 % (0-3) Basophils (%) (Auto) 0 % (0-3) Neutrophils # (Auto) 5.2 x10^3uL (1.8-7.7) Lymphocytes # (Auto) 2.2 x10^3/uL (1.0-4.8) Monocytes # (Auto) 0.6 x10^3/uL (0.0-1.1) Eosinophils # (Auto) 0.1 x10^3/uL (0.0-0.7) Basophils # (Auto) 0.0 x10^3/uL (0.0-0.2) Sodium Level 139 mmol/L (136-145) Potassium Level 3.4 mmol/L (3.5-5.1) Chloride Level 101 mmol/L (98-107) Carbon Dioxide Level 31 mmol/L (21-32) Anion Gap 7 (6-14) Blood Urea Nitrogen 17 mg/dL (7-20) Creatinine 1.2 mg/dL (0.6-1.0) Estimated GFR (Cockcroft-Gault) 46.0 Glucose Level 93 mg/dL (70-99) Calcium Level 8.5 mg/dL (8.5-10.1) Physical Exams HEENT: Neck Supple W Full Motion Chest: Symmetric Lungs: Clear to Auscultation Heart: S1S2, irregularly irregular (AFIB, rate controlled ) Abdomen: Soft N/T, Other (obese) Extremities: Other (trace bilateral LE edema ) Neurology: alert, oriented, follow commands Assessment Assessment 1. Transient right- sided weakness/numbness with associated dysarthria; resolved 2. Persistent AFIB; rate controlled 3. Accelerate HTN; now controlled 4. Acute on chronic systolic CHF; better compensated following diuresis 5. Cardiomyopathy; Echo with LVEF 40%. 6. Morbid obesity; encouraged weight loss Recommendations OAC with Eliquis. Continue metoprolol for rate control Entresto, Lasix for HF optimization Will arrange outpatient event monitor and ischemic evaluation Follow up in our office with Dr. Barrios as scheduled. HERACLIO CARRENO APRN Dec 28, 2019 08:06
[2019-12-28] MEDS: FLUTICASONE 50MCG/NASAL SPRAY 16GM BOTTLE. NS SCH (08:25)
[2019-12-28] MEDS: LACTOBACILLUS RHAMNOSUS GG 1 CAPSULE. PO SCH (08:25)
[2019-12-28] MEDS: APIXABAN 5 MG TABLET. PO SCH (08:25)
[2019-12-28] MEDS: SACUBITRIL/VALSARTAN 24/26MG TABLET. PO SCH (08:26)
[2019-12-28] MEDS: METOPROLOL TART IMMED RELEASE 50 MG TABLET PO SCH (08:26)
[2019-12-28] MEDS ORDERED: FUROSEMIDE 20 MG TABLET PO SCH (09:00)
--- NOTE | 2019-12-28 10:43 | PN ---
DATE: REFERRING PHYSICIAN: Dr. Figueroa SUBJECTIVE: The patient continues to have mild global headaches. She denies nausea, vomiting, chest pain, shortness of breath, palpitation, dysarthria, dysphagia or weakness; however, she continues to complain of numbness and paresthesia of the hands, more prominent on the right side. OBJECTIVE: GENERAL: Obese female, not in acute distress. VITAL SIGNS: Afebrile, blood pressure 127/85, respiratory rate 20, pulse is 80 and regular, oxygen saturation 96% on room air. HEENT: Normocephalic, atraumatic, otherwise unremarkable. NECK: Supple. Negative for carotid bruit, lymphadenopathy, JVD or thyromegaly. LUNGS: Clear to A and P. CARDIOVASCULAR: Regular rhythm, normal S1, S2. No S3, S4 or murmur. ABDOMEN: Soft. Bowel sounds positive. EXTREMITIES: Negative for cyanosis, clubbing or edema. NEUROLOGICAL EXAM: Normal mental status and intact cranial nerves. Motor examination revealed no focal muscle bulk was seen. The tone was normal. 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 Sensory examination revealed diminished pinprick and light touch senses in patchy distributions in distal lower extremities. Deep tendon reflexes were symmetric and hypoactive with absent Achilles responses. Gait and coordination are normal. LABORATORY DATA: CBC revealed white blood cells of 8.2 thousand, hemoglobin 13.5, hematocrit 40.5, platelet count 272,000. Chemistry revealed sodium of 139, potassium 3.4, chloride 101, CO2 of 31, BUN 17, creatinine 1.2, glucose is 93, calcium 8.5, lipid profile is normal. Echocardiogram revealed moderate impaired systolic functions with ejection fraction of 40% and septal motion suggestive of conduction defect. Mild tricuspid regurgitation. IMPRESSION: 1. Possible transient ischemic attack, probably due to underlying cardiac arrhythmias. 2. Atrial fibrillation. 3. Multiple medical problems include obesity, numbness and paresthesia of the upper extremities, rule out entrapment neuropathy at the wrist --rule out carpal tunnel syndrome. 4. Urinary tract infections. Possible early congestive heart failure and chronic low back pain. RECOMMENDATIONS: Continue with current management including Eliquis, potassium supplement. Follow up with Dr. Ocampo after discharge to rule out entrapment neuropathy at the wrist. Follow up with cardiology on outpatient basis for further cardiac workup. M Ivis OCAMPO MD DR: Aspen JOB#: [id number] / [id number]
[2019-12-28 11:00] VITALS: BP 132/84
[2019-12-28] MEDS ORDERED: METO50TA6 PO (13:48)
[2019-12-28] MEDS ORDERED: POTA20TA4 PO (13:48)
[2019-12-28] MEDS ORDERED: APIX5TAB3 PO (13:48)
[2019-12-28] MEDS ORDERED: FURO-69 PO (13:48)
[2019-12-28] MEDS ORDERED: SACU1TAB PO (13:48)
[2019-12-28] MEDS ORDERED: ATOR10TA PO (13:48)
[2019-12-28 14:00] VITALS: BP 138/97
--- NOTE | 2019-12-28 14:09 | DS ---
DATE OF DISCHARGE: 12/28/2019 HOSPITAL COURSE: The patient is sitting at the edge of the bed comfortably in no apparent distress. Her heart rate is much better controlled now. She continued to have tingling and numbness in her right hand felt by Dr. Ocampo to be due to carpal tunnel syndrome rather than the manifestation of TIA. Had had an echocardiogram done, which basically showed that the patient's left ventricular systolic function is moderately impaired, ejection fraction is 40% with global hypokinesis, right ventricle septal motion suggestive of conduction defects. She also has moderate left ventricular diastolic dysfunction as well as mild tricuspid regurgitation and estimated pulmonary artery pressure of 42 mmHg. PHYSICAL EXAMINATION: GENERAL: When I saw her today, she looked well and was clearly in no apparent respiratory distress. No pallor, jaundice, cyanosis or thyromegaly. No jugular venous distention. No limb edema. VITAL SIGNS: Her heart rate was 80, blood pressure was 132/84, temperature was 97.5, respiratory rate was 20, and oxygen saturation was 98%. HEAD, EYES, EARS, NOSE AND THROAT: Showed normocephalic, atraumatic. NECK: Supple. HEART: Reveals normal first and second heart sounds. No gallop or murmur. CHEST: Shows central trachea, equally reduced expansion, reduced air entry, vesicular sounds. I could not really appreciate any crepitation or rhonchi. ABDOMEN: Distended, soft, nontender. NEUROLOGIC: She is grossly intact. Her intake and output are incompletely recorded. LABORATORY DATA: This morning showed a white cell count of 8200, hemoglobin 13.5, hematocrit 40, MCV 93, and platelet count of 272,000. Serum sodium was 139, potassium 3.4, chloride 101, bicarbonate 31, anion gap of 7, BUN 17, creatinine 1.2, estimated GFR was 46 mL per minute. Her glucose was 93, calcium was 8.5, magnesium 2. Her serum triglycerides were 58, total cholesterol of 54, LDL was 92, VLDL was 11, HDL was 51, the ratio was 3. Her TSH was normal, slightly elevated at 5.690. Her prothrombin time was 10.3, INR 1, aPTT was 25 and D-dimer was slightly elevated at 1.4. Urinalysis showed it was positive for nitrite, trace leukocyte esterase and more than 40 wbc's and few bacteria. Toxic screen was negative. DISCHARGE MEDICATIONS: The patient was discharged home to continue on apixaban 5 mg twice a day, atorvastatin calcium 10 mg at bedtime, furosemide 20 mg once a day, metoprolol tartrate 50 mg twice a day, potassium chloride 20 mEq once a day and Entresto 24/26 mg tablet 1 tablet twice a day. She should continue also on sertraline 100 mg daily. FINAL DISCHARGE DIAGNOSES: 1. Transient right sided weakness, numbness that has resolved. Resistant atrial fibrillation, rate controlled 2. Accelerated hypertension, now much better controlled. 3. Acute on chronic systolic congestive heart failure, cardiomyopathy with ejection fraction of only 40%. Morbid obesity. The patient was discharged with arrangements for an outpatient event monitor and ischemic evaluation with Dr. Barrios as an outpatient. SALVADOR COOPER MD DR: EH/oziel JOB#: [id number] / [id number]
== END 2019-12-28 14:00 | disposition home or self-care (01) | DRG 73 ==
LOC: ER 22:23 → ICU 23:00
PROVIDERS: ADMIT Internal Medicine; ATTEND Internal Medicine
DX: G56.00 Carpal tunnel syndrome, unspecified upper limb (principal); I50.43 Acute on chronic combined systolic (congestive) and diastolic (congestive) heart failure; N39.0 Urinary tract infection, site not specified; I48.19 Other persistent atrial fibrillation; E44.0 Moderate protein-calorie malnutrition; Z68.43 Body mass index [BMI] 50.0-59.9, adult; I42.8 Other cardiomyopathies; I11.0 Hypertensive heart disease with heart failure; E11.9 Type 2 diabetes mellitus without complications; E66.01 Morbid (severe) obesity due to excess calories; G89.29 Other chronic pain; J32.0 Chronic maxillary sinusitis; J32.1 Chronic frontal sinusitis; J42 Unspecified chronic bronchitis; J45.909 Unspecified asthma, uncomplicated; M19.90 Unspecified osteoarthritis, unspecified site; M17.0 Bilateral primary osteoarthritis of knee; F41.9 Anxiety disorder, unspecified; F32.9 Major depressive disorder, single episode, unspecified; Z82.3 Family history of stroke; Z82.49 Family history of ischemic heart disease and other diseases of the circulatory system; Z83.2 Family history of diseases of the blood and blood-forming organs and certain disorders involving the immune mechanism; Z86.73 Personal history of transient ischemic attack (TIA), and cerebral infarction without residual deficits; Z90.710 Acquired absence of both cervix and uterus; Z90.49 Acquired absence of other specified parts of digestive tract
CPT/HCPCS: 36415; 70450; 71045; 71275; 80048; 80061; 80076; 80307; 81001; 82550; 82947; 83690; 83735; 83880; 84443; 84484; 85025; 85379; 85610; 85651; 85730; 86140; 87086; 87186; 93005; 93306; 93880; 93970; 96361; 96365; 96366; 96375; J0696; J1650; J1940; J2405; J3490; J7120; Q9967; 99285-25

== ENCOUNTER → 2021-03-19 | Outpatient (CLI) | payer MEDICARE ==
[~2021-03-19] MED LIST changes: +APIX5TAB3 PO; +ATOR10TA PO; +FURO-69 PO; +METO-239 PO; +METO50TA6 PO; +POTA20TA4 PO; +SACU1TAB PO; +SERT-269 PO
[2021-03-19 17:07] LABS: BASO % 1 % (0-3); EOS # 0.2 x10^3/uL (0.0-0.7); EOS % 2 % (0-3); HEMATOCRIT 42.6 % (36.0-47.0); HEMOGLOBIN 14.2 g/dL (12.0-15.5); LYMPH # 2.7 x10^3/uL (1.0-4.8); LYMPH % 27 % (24-48); MEAN CORPUSCULAR HEMOGLOBIN 32 pg (25-35); MEAN CORPUSCULAR HGB CONC 33 g/dL (31-37); MEAN CORPUSCULAR VOLUME 96 fL (79-100); MONO # 0.8 x10^3/uL (0.0-1.1); MONO % 8 % (0-9); NEUT # 6.4 x10^3uL (1.8-7.7); NEUT % 63 % (31-73); PLATELET COUNT 308 x10^3/uL (140-400); RED BLOOD COUNT 4.45 x10^6/uL (3.50-5.40); RED CELL DISTRIBUTION WIDTH 14.6 % (11.5-14.5); WHITE BLOOD COUNT 10.1 x10^3/uL (4.0-11.0)
[2021-03-19 17:21] LABS: ALBUMIN 3.2 g/dL (3.4-5.0); ALBUMIN/GLOBULIN RATIO 0.6 (1.0-1.7); CALCIUM 9.1 mg/dL (8.5-10.1); CREATININE 1.4 mg/dL (0.6-1.0); GFR 38.4; POTASSIUM 3.9 mmol/L (3.5-5.1); TOTAL BILIRUBIN 0.5 mg/dL (0.2-1.0); TOTAL PROTEIN 8.5 g/dL (6.4-8.2)
== END ==
LOC: LAB 15:26
PROVIDERS: ATTEND Internal Medicine Cardiovascular Disease
DX: I48.91 Unspecified atrial fibrillation (principal)
CPT/HCPCS: 36415; 80053; 83880; 84443; 85025

== ENCOUNTER 2022-03-24 22:13 | Emergency (ER) | payer MEDICARE ==
[~2022-03-24] VITALS: Ht 160 cm; Wt 173.2 kg
--- NOTE | 2022-03-24 22:24 | PHYS DOC ---
Past History Past Medical History: A-Fib, Anxiety, Asthma, Bronchitis, TIA, Other Past Surgical History: Cholecystectomy, Alcohol Use: None Drug Use: None Adult General HPI HPI Patient is a 61-year-old female who presents with 2 days of dental pain, 7 out of 10 sharp in nature with no radiation. States she has poor dentition generally and has had pain with her teeth but this was new as her filling fell out 2 days ago on the bottom left. States he has been taking a little Tylenol at home. States he is trying to get into a dentist but is difficult Review of Systems Review of Systems Review of systems otherwise unremarkable except noted in HPI Allergies Allergies Allergies Coded Allergies Type Severity Reaction Last Updated Verified erythromycin base Allergy Unknown 09/28/18 Yes Physical Exam Physical Exam Constitutional: Well developed, well nourished, no acute distress, non-toxic appearance. [] HENT: Normocephalic, atraumatic, oropharynx moist, no oral exudates, poor dentition generally with significant dental caries on left lower molars Eyes: conjunctiva normal, no discharge. [] Neck: Normal range of motion, no tenderness, supple, no stridor. [] Neurologic: Alert and oriented X 3, normal motor function, normal sensory function, no focal deficits noted. [] Psychologic: Affect normal, judgement normal, mood normal. [] EKG EKG [] Radiology/Procedures Radiology/Procedures [] Heart Score C/O Chest Pain: No Risk Factors: Risk Factors: DM, Current or recent (<one month) smoker, HTN, HLP, family history of CAD, obesity. Risk Scores: Risk Factors: DM, Current or recent (<one month) smoker, HTN, HLP, family history of CAD, obesity. Course & Med Decision Making Course & Med Decision Making Patient is a 61-year-old female who presents with dental pain Started on antibiotics in ED. Given pain medicine in the ED. Given pain regimen for home Given contact information for local free dentist. Advised to follow-up in the morning both with them and her primary care physician Gave return precautions to the ED. Patient grateful, verbalized understanding agreed with plan of discharge [] Dragon Disclaimer Dragon Disclaimer This electronic medical record was generated, in whole or in part, using a voice recognition dictation system. Departure Departure: Impression: Primary Impression: Pain, dental Disposition: HOME / SELF CARE / HOMELESS Condition: STABLE Referrals: JOHNATHAN MCNEILL (PCP) Patient Instructions: Dental Pain Additional Instructions: Thank you for coming into the emergency department tonight and allowing us to take care of you. Please read the attached information carefully to go over things we discussed. You can use Tylenol, ibuprofen, Benadryl and Orajel as we discussed. Tylenol 1000 mg every 8 hours. Ibuprofen 600 mg every 6 hours. Benadryl 50 mg every 6 hours. Orajel. Please follow-up in the morning with a dentist to discuss need for fillings, root canals or extractions. Please take all your medicines as prescribed. You are given contact information for all the local free dentist. Scripts Amoxicillin (AMOXICILLIN) 500 Mg Capsule 1 CAP PO BID for dental pain for 10 Days, #20 CAP Prov: RITESH FREEMAN MD 03/24/22 RITESH FREEMAN MD March 24, 2022 22:24
[2022-03-24] MEDS ORDERED: AMOX500C PO (22:35)
[2022-03-24 22:38] VITALS: BP 155/98
[2022-03-24] MEDS: IBUPROFEN 600 MG TABLET. PO ONE (22:45)
[2022-03-24] MEDS: AMOXICILLIN 250 MG CAPSULE PO ONE (22:45)
== END 2022-03-24 22:50 | disposition home or self-care (01) ==
LOC: ER 22:13
DX: K02.9 Dental caries, unspecified (principal); I48.91 Unspecified atrial fibrillation; F41.9 Anxiety disorder, unspecified; J45.909 Unspecified asthma, uncomplicated; Z86.73 Personal history of transient ischemic attack (TIA), and cerebral infarction without residual deficits; Z88.1 Allergy status to other antibiotic agents
CPT/HCPCS: 99283